=== PATIENT | female | born 1950 | race Caucasian/White ===

== ENCOUNTER 2021-03-31 09:23 | Day surgery (SDC) | payer BC, OTHER ==
[2021-03-29 15:30] VITALS: BMI 27.8
[2021-03-31] MEDS ORDERED: LIDOCAINE HCL/PF 2% SDV 5ML VIAL ONE (10:29)
[2021-03-31] MEDS ORDERED: PROPOFOL 20 ML ONE ×4 (10:29)
[2021-03-31 11:43] VITALS: BP 116/71; PULSE 64; TEMP 98
== END 2021-03-31 11:44 | disposition home or self-care (01) ==
LOC: FASU-ENDO 09:23
PROVIDERS: ATTEND Internal Medicine Gastroenterology
PROC: 0DBP8ZX Excision of Rectum, Via Natural or Artificial Opening Endoscopic, Diagnostic (ICD-10-PCS; principal; 2021-03-31 10:56)
DX: Z86.010 Personal history of colon polyps (principal); K62.1 Rectal polyp; K64.2 Third degree hemorrhoids; K57.30 Diverticulosis of large intestine without perforation or abscess without bleeding

== ENCOUNTER 2023-02-21 05:15 | Day surgery (SDC) | payer OTHER ==
[2023-02-16 17:04] VITALS: BMI 28.0
[2023-02-21] MEDS ORDERED: ISOSULFAN BLUE 50 MG/5 ML VIAL SQ ONE (15:30)
[2023-02-21] MEDS ORDERED: PROPOFOL 20 ML ONE ×2 (15:34→15:52)
[2023-02-21] MEDS ORDERED: MIDAZOLAM HCL 2 MG/2 ML SINGLE DOSE VIAL ONE (15:34)
[2023-02-21] MEDS ORDERED: ceFAZolin SODIUM 1 GM VIAL IVPB ONE (15:49)
[2023-02-21] MEDS ORDERED: KETOROLAC TROMETHAMINE 30 MG/1 ML VIAL ONE (16:08)
[2023-02-21] MEDS ORDERED: PROMETHAZINE HCL 25 MG/1 ML VIAL IVPB PRN (16:43)
[2023-02-21] MEDS ORDERED: ONDANSETRON 4 MG/2 ML VIAL IVPUSH PRN (16:43)
[2023-02-21] MEDS ORDERED: oxyCODONE HCL 5 MG TABLET PO PRN ×2 (16:43)
[2023-02-21] MEDS ORDERED: ACETAMINOPHEN 1000 MG/100 ML BAG IVPB PRN (16:44)
[2023-02-21] MEDS ORDERED: LACTATED RINGERS SOLUTION 1,000 ML IV SCH (16:45)
[2023-02-21] MEDS ORDERED: ACETAMINOPHEN INJECTION 100 ML IVPB ONE (17:16)
[2023-02-21 18:29] VITALS: RESP 18
[2023-02-21 19:03] VITALS: BP 126/55; PULSE 67; TEMP 98
== END 2023-02-21 18:52 | disposition home or self-care (01) ==
LOC: JASU-SURG 05:15
PROVIDERS: ATTEND Surgery
PROC: 0HBT0ZZ Excision of Right Breast, Open Approach (ICD-10-PCS; principal; 2023-02-21 13:30)
PROC: 07B50ZX Excision of Right Axillary Lymphatic, Open Approach, Diagnostic (ICD-10-PCS; 2023-02-21 13:30)
DX: C50.211 Malignant neoplasm of upper-inner quadrant of right female breast (principal); C77.3 Secondary and unspecified malignant neoplasm of axilla and upper limb lymph nodes; Z17.0 Estrogen receptor positive status [ER+]
CPT/HCPCS: 19281; 76098-TC-FY; 78195-TC; 88307-TC; 88341-TC; 88342-TC; 94760; A9541

== ENCOUNTER 2023-03-07 05:22 | Day surgery (SDC) | payer OTHER ==
[2023-03-03 10:09] VITALS: BMI 28.0
[2023-03-07] MEDS ORDERED: LIDOCAINE HCL/PF 1% SDV 5ML VIAL ONE (11:21)
[2023-03-07] MEDS ORDERED: PROPOFOL 20 ML ONE (11:28)
[2023-03-07] MEDS ORDERED: LIDOCAINE HCL/PF 2% SDV 5ML VIAL ONE (11:28)
[2023-03-07] MEDS ORDERED: MIDAZOLAM HCL 2 MG/2 ML SINGLE DOSE VIAL ONE (11:29)
[2023-03-07] MEDS ORDERED: ceFAZolin SODIUM 1 GM VIAL IVPB ONE (11:58)
[2023-03-07] MEDS ORDERED: LIDOCAINE HCL 1%, 10 MG/ML (50 mL VIAL) INF ONE (12:01)
[2023-03-07] MEDS ORDERED: ceFAZolin SODIUM 1 GM VIAL ONE (12:03)
[2023-03-07] MEDS ORDERED: ONDANSETRON 4 MG/2 ML VIAL ONE (12:03)
[2023-03-07] MEDS ORDERED: DEXAMETHASONE SOD PHOSPHATE 4 MG/1 ML VIAL ONE (12:03)
[2023-03-07] MEDS ORDERED: KETOROLAC TROMETHAMINE 30 MG/1 ML VIAL ONE (12:22)
[2023-03-07] MEDS ORDERED: ONDANSETRON 4 MG/2 ML VIAL IVPUSH PRN (13:33)
[2023-03-07] MEDS ORDERED: oxyCODONE HCL 5 MG TABLET PO PRN (13:33)
[2023-03-07] MEDS ORDERED: LACTATED RINGERS SOLUTION 1,000 ML IV SCH (13:45)
[2023-03-07 14:59] VITALS: RESP 20
[2023-03-07 16:21] VITALS: TEMP 97.8
[2023-03-07 16:43] VITALS: BP 122/60; PULSE 68
== END 2023-03-07 15:45 | disposition home or self-care (01) ==
LOC: JASU-SURG 05:22
PROVIDERS: ATTEND Surgery
PROC: 0HBT0ZZ Excision of Right Breast, Open Approach (ICD-10-PCS; principal; 2023-03-07 11:30)
DX: C50.911 Malignant neoplasm of unspecified site of right female breast (principal)
CPT/HCPCS: 88307-TC; 88341-TC; 88342-TC; 94760